=== PATIENT | male | born 1960 | race Two or more races ===

== ENCOUNTER 2020-10-30 17:51 | Emergency (ER) | payer SELFPAY ==
[~2020-10-30] VITALS: Ht 177.8 cm; Wt 76.6 kg
--- NOTE | 2020-10-30 17:56 | PHYS DOC ---
General Adult HPI: HPI: ".. I hurt my back picking up stuff over a month and 1/2 ago.. I been going to rehab.. through work comp... They did a MRI today.. since I ve not improved.. they say I got a spine infection.. and sent me here...." Patient is a 59 year old male who presents with above hx and complaints lumbar sacral pain for the past 1 and half months. Patient injured his back at the [employer] where he has been employed. . Patient states he has not had any problems with defecation or urination other than he has in the large prostate but sometimes makes urination difficult. Patient denies any fever or chills. Patient is originally born in [place] but has been in [facility] almost his entire life. Patient has been a resident [facility] for 50 years. Has had an occasional visit he to [place] where he was born. No history of tuberculosis Negative skin testing. No history of IV drug use. No history of immunosuppression. No recent travel. Patient does follow-up with primary care through [facility]. Patient localizes pain in lumbosacral area. Does not radiate into the sciatic nerves. Does have sensation perirectal and genital area. MRI completed today shows discitis or osteomyelitis at T11-T12 and possible paraspinal abscess currently there is no associated central Canal stenosis or cord compression patient also has mild disc endplate degenerative changes. Does have some relative central canal and neuroforaminal narrowing associated with degenerative changes. Review of Systems: Review of Systems: Constitutional: Denies fever or chills Eyes: Denies change in visual acuity HENT: Denies nasal congestion or sore throat Respiratory: Denies cough or shortness of breath Cardiovascular: Denies chest pain or edema GI: Denies abdominal pain, nausea, vomiting, bloody stools or diarrhea : Denies dysuria Musculoskeletal: Complains of back pain for the last month and a half Integument: Denies rash Neurologic: Denies headache, focal weakness or sensory changes Endocrine: Denies polyuria or polydipsia Lymphatic: Denies swollen glands Psychiatric: Denies depression or anxiety Family History: Family History: Noncontributory to presentation Current Medications: Current Meds: See nursing for home meds Allergies: Allergies: No known drug allergies Physical Exam: PE: Constitutional: Well developed, well nourished, no acute distress, non-toxic appearance. [] HENT: Normocephalic, atraumatic, bilateral external ears normal, oropharynx moist, no oral exudates, nose normal. [] Eyes: PERRLA, EOMI, conjunctiva normal, no discharge. [] Neck: Normal range of motion, no tenderness, supple, no stridor. [] Cardiovascular:Heart rate regular rhythm, no murmur [] Lungs & Thorax: Bilateral breath sounds clear to auscultation [] Abdomen: Bowel sounds normal, soft, no tenderness, no masses, no pulsatile masses. [] Skin: Warm, dry, no erythema, no rash. [] Back: Midline spinal tenderness at T11-T12 area does have some lumbar spasms,, no CVA tenderness. [] Extremities: No tenderness, no cyanosis, no clubbing, ROM intact, no edema. [] Neurologic: Alert and oriented X 3, normal motor function, normal sensory function, no focal deficits noted. DTRs +2 patella. No clonus. Psychologic: Affect anxious, judgement normal, mood normal. [] EKG: EKG: My interpretation of EKG shows a sinus rhythm at 73 bpm. Slightly below long TX interval. There is right bundle branch block with RVH. However no findings of acute STEMI with contralateral changes. [] Radiology/Procedures: Radiology/Procedures: [][place] [address] IMAGING REPORT Signed PATIENT: NIGEL LEWIS ACCOUNT: [id number] : 1960 LOCATION: ER AGE: 59 SEX: M EXAM STATUS: REG ER ORD. PHYSICIAN: HANNA PRABHAKAR MD REASON: hx mid back pain, ? abscess PROCEDURE: PORTABLE CHEST 1V EXAM: AP View of the chest DATE: 10/30/2020 6:50 PM INDICATION: Reason: hx mid back pain, ? abscess / Spl. Instructions: / History: COMPARISON: No Prior FINDINGS: The heart is not enlarged. Mediastinal and hilar contours are normal. No focal parenchymal airspace opacity. No pleural effusion or pneumothorax. IMPRESSION: 1. No radiographic evidence for acute cardiopulmonary process. Electronically signed by: Yordy Corbett MD (10/30/2020 7:37 PM) [facility] DICTATED AND SIGNED BY: YORDY CORBETT MD DATE: 10/30/201936 CC: HANNA PRABHAKAR MD; PCP,NO ~MTH0 0 Heart Score: HEART Score for Chest Pain: HEART Score for Chest Pain Response (Comments) Value History Slighlty/Non-Suspicious 0 ECG Nonspecific Repolarizatio 1 Age >45 - < 65 1 Risk Factors 1 or 2 Risk Factors 1 Troponin < Normal Limit 0 Total 3 Risk Factors: Risk Factors: DM, Current or recent (<one month) smoker, HTN, HLP, family history of CAD, obesity. Risk Scores: Score 0 - 3: 2.5% MACE over next 6 weeks - Discharge Home Score 4 - 6: 20.3% MACE over next 6 weeks - Admit for Clinical Observation Score 7 - 10: 72.7% MACE over next 6 weeks - Early Invasive Strategies Course & Med Decision Making: Course & Med Decision Making Pertinent Labs and Imaging studies reviewed. (See chart for details) Discussed presentation, testing and treatment plan with , Dr. Dianelys Maurice, Dr. Duggan. Patient accepted in transfer to Dr. Mitchell service with consults to neurosurgery Dameon and Dr. Duggan- LONNIE. Dr. Duggan advised no further antibiotics, until needle biopsy or surgical biopsy of site. Impression: 1. Back pain 2. Discitis and spinal abscess T11-12 3. Elevated CRP 77.8 4. Anemia 10.3 [] Dragon Disclaimer: Dragon Disclaimer: This electronic medical record was generated, in whole or in part, using a voice recognition dictation system. Departure Departure: Referrals: PCP,NO (PCP) Dragon Disclaimer This chart was dictated in whole or in part using Voice Recognition software in a busy, high-work load, and often noisy Emergency Department environment. It may contain unintended and wholly unrecognized errors or omissions. Dragon Disclaimer This chart was dictated in whole or in part using Voice Recognition software in a busy, high-work load, and often noisy Emergency Department environment. It may contain unintended and wholly unrecognized errors or omissions. HANNA PRABHAKAR MD Oct 30, 2020 17:56
[2020-10-30] MEDS ORDERED: VANCOMYCIN 1 GM in IV NORMAL SALINE 250ML 250 ML IV ONE (18:45)
[2020-10-30] MEDS ORDERED: IV RINGERS SOLUTION,LACTATED 1,000 ML IV SCH (18:45)
[2020-10-30] MEDS ORDERED: IV NORMAL SALINE 100ML 100 ML ONE (18:56)
[2020-10-30] MEDS ORDERED: IV NORMAL SALINE 250ML 250 ML ONE (18:56)
[2020-10-30] MEDS ORDERED: VANCOMYCIN 1 GM VIAL. ONE (18:56)
[2020-10-30] MEDS ORDERED: methylPREDNISolone ACETATE 40 MG/ML VIAL. IM ONE (19:00)
[2020-10-30] MEDS ORDERED: MORPHINE SULFATE 10 MG/ML SYRINGE. SQ ONE (19:30)
[2020-10-30 19:38] LABS: BASO # 0.1 x10^3/uL (0.0-0.2); BASO % 1 % (0-3); EOS # 0.3 x10^3/uL (0.0-0.7); EOS % 4 % (0-3); HEMATOCRIT 32.2 % (39.0-53.0); HEMOGLOBIN 10.3 g/dL (13.0-17.5); LYMPH # 1.3 x10^3/uL (1.0-4.8); LYMPH % 20 % (24-48); MEAN CORPUSCULAR HEMOGLOBIN 26 pg (25-35); MEAN CORPUSCULAR HGB CONC 32 g/dL (31-37); MEAN CORPUSCULAR VOLUME 80 fL (79-100); MONO # 0.5 x10^3/uL (0.0-1.1); MONO % 8 % (0-9); NEUT # 4.4 x10^3uL (1.8-7.7); NEUT % 67 % (31-73); PLATELET COUNT 335 x10^3/uL (140-400); RED BLOOD COUNT 4.01 x10^6/uL (4.30-5.70); RED CELL DISTRIBUTION WIDTH 15.1 % (11.5-14.5); WHITE BLOOD COUNT 6.6 x10^3/uL (4.0-11.0)
--- NOTE | 2020-10-30 19:40 | RAD ---
EXAM: AP View of the chest DATE: 10/30/2020 6:50 PM INDICATION: Reason: hx mid back pain, ? abscess / Spl. Instructions: / History: COMPARISON: No Prior FINDINGS: The heart is not enlarged. Mediastinal and hilar contours are normal. No focal parenchymal airspace opacity. No pleural effusion or pneumothorax. IMPRESSION: 1. No radiographic evidence for acute cardiopulmonary process. Electronically signed by: Yordy Lyn MD (10/30/2020 7:37 PM) JUVENAL
[2020-10-30 19:48] LABS: CALCIUM 8.9 mg/dL (8.5-10.1); POTASSIUM 4.2 mmol/L (3.5-5.1)
[2020-10-30 19:52] LABS: C REACTIVE PROTEIN 77.8 mg/L (0-3.3); DIRECT BILIRUBIN 0.1 mg/dL (0.0-0.2); MAGNESIUM 1.9 mg/dL (1.8-2.4); TOTAL BILIRUBIN 0.2 mg/dL (0.2-1.0); TOTAL PROTEIN 7.2 g/dL (6.4-8.2)
[2020-10-30 20:04] LABS: COLOR,URINE YELLOW
[2020-10-30 20:05] LABS: AMORPHOUS SEDIMENT,UR PRESENT /HPF; BACTERIA,URINE 0 /HPF (0-FEW); BILIRUBIN,URINE NEG (NEG); CLARITY,URINE HAZY; GLUCOSE,URINE NEG (NEG); NITRITE,URINE NEG (NEG); RBC,URINE 0 /HPF (0-2); SQUAMOUS EPITHELIAL CELL,UR OCC /LPF; UROBILINOGEN,URINE 0.2 mg/dL (0.2 mg/dL); WBC,URINE RARE /HPF (0-4)
--- NOTE | 2020-10-30 20:06 | EKG ---
[address] [address] Test Date: 2020-10-30 Test Time: 19:10:16 Pat Name: NIGEL LEWIS Department: Room: Gender: M [employer]: MARYJANE : 1960 Requested By: HANNA PRABHAKAR Order Number: [id number] Reading MD: Measurements Intervals [place] Rate: 73 P: 45 IA: 220 QRS: 53 QRSD: 116 T: 29 QT: 356 QTc: 396 Interpretive Statements SINUS RHYTHM PROLONGED IA INTERVAL INCOMPLETE RIGHT BUNDLE BRANCH BLOCK RVH WITH REPOLARIZATION ABNORMALITY ABNORMAL ECG RI6.02 No previous ECG available for comparison
[2020-10-30 20:19] LABS: BARBITURATES NEG (NEG); BENZODIAZEPINES NEG (NEG); CANNABINOIDS NEG (NEG); COCAINE NEG (NEG); METHADONE NEG (NEG); OPIATES NEG (NEG); PHENCYCLIDINE NEG (NEG)
[2020-10-30 20:33] LABS: AMPHETAMINE/METHAMPHETAMINE NEG (NEG)
[2020-10-30 21:12] VITALS: BP 161/94
== END 2020-10-30 22:25 | disposition short-term general hospital (02) ==
LOC: ER 17:51
DX: M54.5 Low back pain (principal); M46.44 Discitis, unspecified, thoracic region; J86.9 Pyothorax without fistula; R79.82 Elevated C-reactive protein (CRP); D64.9 Anemia, unspecified
CPT/HCPCS: 36415; 71045; 80048; 80076; 80307; 81001; 82550; 83735; 84484; 85025; 85610; 85730; 86140; 87040; 87205; 93005; 96365; 96372; 96375; 99285; G0103; J0696; J1030; J2270; J3370; J7050; J7120

== ENCOUNTER → 2020-11-17 | Outpatient (CLI) | payer OTHER ==
[2020-10-30 21:12] VITALS: BP 161/94
[2020-11-17 12:36] LABS: BASO # 0.1 x10^3/uL (0.0-0.2); BASO % 1 % (0-3); EOS # 0.3 x10^3/uL (0.0-0.7); EOS % 5 % (0-3); HEMATOCRIT 35.9 % (39.0-53.0); HEMOGLOBIN 11.7 g/dL (13.0-17.5); LYMPH # 1.9 x10^3/uL (1.0-4.8); LYMPH % 29 % (24-48); MEAN CORPUSCULAR HEMOGLOBIN 26 pg (25-35); MEAN CORPUSCULAR HGB CONC 32 g/dL (31-37); MEAN CORPUSCULAR VOLUME 80 fL (79-100); MONO # 0.6 x10^3/uL (0.0-1.1); MONO % 9 % (0-9); NEUT # 3.7 x10^3uL (1.8-7.7); NEUT % 56 % (31-73); PLATELET COUNT 220 x10^3/uL (140-400); RED BLOOD COUNT 4.48 x10^6/uL (4.30-5.70); RED CELL DISTRIBUTION WIDTH 17.2 % (11.5-14.5); WHITE BLOOD COUNT 6.6 x10^3/uL (4.0-11.0)
[2020-11-17 13:09] LABS: C REACTIVE PROTEIN 8.9 mg/L (0-3.3)
== END ==
LOC: LAB 12:20
PROVIDERS: ATTEND Internal Medicine Infectious Disease
DX: Z45.2 Encounter for adjustment and management of vascular access device (principal); G06.1 Intraspinal abscess and granuloma
CPT/HCPCS: 36415; 82550; 82565; 84520; 85025; 86140

== ENCOUNTER → 2020-11-24 | Outpatient (CLI) | payer OTHER ==
[2020-10-30 21:12] VITALS: BP 161/94
[2020-11-24 13:43] LABS: HEMATOCRIT 35.5 % (39.0-53.0); HEMOGLOBIN 11.6 g/dL (13.0-17.5); RED BLOOD COUNT 4.45 x10^6/uL (4.30-5.70); WHITE BLOOD COUNT 5.2 x10^3/uL (4.0-11.0)
[2020-11-24 13:49] LABS: C REACTIVE PROTEIN 14.2 mg/L (0-3.3); CREATININE 0.9 mg/dL (0.7-1.3); GFR 85.8
== END ==
LOC: LAB 13:22
PROVIDERS: ATTEND Internal Medicine Infectious Disease
DX: Z45.2 Encounter for adjustment and management of vascular access device (principal)
CPT/HCPCS: 36415; 82550; 82565; 84520; 85027; 86140

== ENCOUNTER → 2020-12-01 | Outpatient (CLI) | payer OTHER ==
[2020-12-01 12:13] LABS: HEMATOCRIT 38.6 % (39.0-53.0); HEMOGLOBIN 12.4 g/dL (13.0-17.5); RED BLOOD COUNT 4.71 x10^6/uL (4.30-5.70); RED CELL DISTRIBUTION WIDTH 18.8 % (11.5-14.5); WHITE BLOOD COUNT 5.9 x10^3/uL (4.0-11.0)
[2020-12-01 12:21] LABS: C REACTIVE PROTEIN 7.7 mg/L (0-3.3); CREATININE 0.9 mg/dL (0.7-1.3); GFR 85.8
== END ==
LOC: LAB 11:55
PROVIDERS: ATTEND Internal Medicine Infectious Disease
DX: R79.82 Elevated C-reactive protein (CRP) (principal); Z79.2 Long term (current) use of antibiotics
CPT/HCPCS: 36415; 82565; 84520; 85027; 86140

== ENCOUNTER → 2020-12-08 | Outpatient (CLI) | payer OTHER ==
[2020-12-08 13:50] LABS: C REACTIVE PROTEIN 4.8 mg/L (0-3.3); CREATININE 0.9 mg/dL (0.7-1.3); GFR 85.5
== END ==
LOC: SPEC 12:49
PROVIDERS: ATTEND Internal Medicine Infectious Disease
DX: Z45.2 Encounter for adjustment and management of vascular access device (principal)
CPT/HCPCS: 36415; 82565; 84520; 86140